=== PATIENT | male | born 1970 | race Caucasian/White ===

== ENCOUNTER → 2024-04-26 08:26 | Outpatient (REF) | payer BC, SELFPAY ==
[2024-04-26 09:32] LABS: Microalbumin, Random Urine <0.6 mg/dl (0.6-1.7)
[2024-04-26 09:36] LABS: ALT (SGPT) 28 U/L (0-50); AST (SGOT) 24 U/L (17-59); Albumin 4.6 g/dl (3.5-5.0); Alkaline Phosphatase 61 U/L (38-126); Blood Urea Nitrogen 11 mg/dl (9-20); Calcium 10.2 mg/dl (8.4-10.2); Carbon Dioxide 22 mmol/L (22-30); Chloride 106 mmol/L (98-107); Glucose 114 mg/dl (70-99); HDL Cholesterol 27 mg/dl; LDL Cholesterol, Calculated 40 mg/dl; Potassium 4.4 mmol/L (3.5-5.1); Sodium 141 mmol/L (135-145); Total Bilirubin 0.8 mg/dl (0.2-1.3); Total Cholesterol 94 mg/dl (50-199); Total Protein 6.8 g/dl (6.3-8.2); Triglyceride 135 mg/dl (10-149); Very Low Density Lipoprotein 27 mg/dl (0-30); eGFR > 60.00
== END ==
LOC: REG 08:26
PROVIDERS: ATTENDING PHYSICIAN Family Medicine
DX: E11.9 Type 2 diabetes mellitus without complications (principal)
CPT/HCPCS: 36415; 80053; 80061; 82043; 82570; 83036

== ENCOUNTER 2024-07-01 10:48 | Emergency (ER) | payer BC, SELFPAY ==
[2024-07-01 10:57] VITALS: BP 142/86
[2024-07-01 11:16] VITALS: BP 116/83
[2024-07-01 11:18] VITALS: BMI 29.3
[2024-07-01 11:36] LABS: % Basophils 0.8 % (0-2); % Eosinophils 4.3 % (0-6); % Immature Granulocytes 0.1 % (0-0.5); % Lymphocytes 19.6 % (20.5-51.1); % Neutrophils 69.2 % (42.2-75.2); Absolute Basophils 0.1 10^3/uL (0-0.2); Absolute Eosinophils 0.3 10^3/uL (0-0.7); Absolute Lymphocytes 1.5 10^3/uL (1.2-3.4); Absolute Monocytes 0.5 10^3/uL (0.1-0.6); Absolute Neutrophils 5.2 10^3/uL (1.4-6.5); Hematocrit 47.9 % (39.0-52.0); Hemoglobin 16.9 g/dL (13.0-18.0); Mean Corp Hgb Conc. 35.3 g/dL (33.0-37.0); Mean Corpuscular Hgb 29.1 pg (27.0-31.0); Mean Corpuscular Volume 82.4 fL (80.0-94.0); Mean Platelet Volume 9.5 fL (7.4-10.4); Nucleated Red Blood Cells % 0 % (-); Platelet Count 240 10^3/uL (130-400); Red Blood Cell Count 5.81 10^6/uL (4.70-6.10); Red Cell Dist. Width 13.2 % (11.5-14.5); White Blood Cell Count 7.5 10^3/uL (4.8-10.8)
--- NOTE | 2024-07-01 11:49 | ED.GENMED ---
History of Present Illness
General
Chief Complaint: Chest Pain
Source: patient
Exam Limitations: none
Time Seen by Provider: 07/01/24 11:08
Nursing documentation reviewed up to this point in time: agreed with
History of Present Illness
History of Present Illness:
Patient is a 53-year-old male past medical history of CAD hyperlipidemia UT SVT reflux presents today for evaluation. He reports on 8:30 a.m. this morning while at work he got some bad news and suddenly started to have difficulty breathing dry
mouth and felt heart beating fast. Triage note reports patient had pain but he reports this more as palpitations and racing sensation rather than pain. He believes he was having an anxiety attack because the bad news he received. This does not
feel similar to his chest pain when he had his UT despite triage note stating that this was similar presentation. He presents awake alert no acute distress symptoms lasted for couple hours but have currently resolved.
Past History
Past History
ED Past Medical History: Arrthythmia (SVT), CAD, GERD, IDDM and Psychiatric (Anxiety)
ED Past Surgical History: Cardiac (Stents) and Cholecystectomy
Social History
Tobacco: Former smoker
Alcohol: Occasional
Personal:
Living: with family
Employment: Employed
Family History
Family History: Other (Gallbladder disease); Negative Diabetes, Early CAD or CAD
Review of Systems
Review of Systems
Allergies reviewed?: Yes
All Other Systems: ROS reviewed and negative except as documented in HPI and ROS
Constitutional: Reports no symptoms; Denies fever, fatigue or chills
EENT: Reports no symptoms
Respiratory: Reports trouble breathing
Cardiac: Reports palpitations
ABD/GI: Reports no symptoms; Denies abdominal pain, nausea or vomiting
: Reports no symptoms
Musculoskeletal: Reports no symptoms
Skin: Reports no symptoms
Hematologic/Lymphatic: Reports no symptoms
Psychiatric: Reports no symptoms
Phy Exam
General Physical Exam
General Presentation: no apparent distress
General age: appears stated age
General Skin: warm and dry
General Habitus: normal
General Mental: alert
General Hydration: appears well hydrated
Cardiovascular Exam
Cardiovascular Exam: regular rate/rhythm, no murmur and normal peripheral pulses
Scores
Heart Score for Chest Pain Patients
STEMI patient?: Not applicable
Course
Orders/Labs/Results
Orders:
Orders
07/01/24 10:49
EKG [Electrocardiogram (*1)] Urgent
Reason for Study: Chest Pain
EKG- Treatment ONCE
07/01/24 11:27
CMP [Comprehensive Metabolic Panel] Urgent
Complete Blood Count/With Diff Urgent
Troponin I Urgent
07/01/24 14:18
Chest [CR Chest - 2 Views ] Urgent
Comment:
Reason For Exam: cp
07/01/24 14:20
Electrocardiogram (*1) Stat
Reason for Study: Other
Other Reason for Exam: chest pain
EKG- Treatment ONCE
07/01/24 14:45
Troponin I Urgent
Abnormal Lab Results
07/01/24
11:27
Lymphocytes % 19.6 L %
(20.5-51.1)
Carbon Dioxide 18 L mmol/L
(22-30)
Glucose 106 H mg/dl
(70-99)
Calcium 10.5 H mg/dl
(8.4-10.2)
Albumin 5.1 H g/dl
(3.5-5.0)
07/01/24 11:27
07/01/24 11:27
Vital Signs
Initial and Last Documented VS:
Initial Vital Signs
Temp Pulse Resp BP Pulse Ox
98 F 90 16 142/86 99
07/01/24 10:57 07/01/24 10:57 07/01/24 10:57 07/01/24 10:57 07/01/24 10:57
Last Documented Vital Signs
Temp Pulse Resp BP Pulse Ox
98 F 96 18 127/92 99
07/01/24 10:57 07/01/24 15:00 07/01/24 11:19 07/01/24 15:00 07/01/24 10:57
MDM/Problems Addressed
Differential Diagnosis Includes:
not limited to: anxiety, less likely acs
MDM/Problems Addressed:
Patient is document is a 49-year-old male previous UT presents for episode of shortness of breath dry mouth and heart racing around 830 this morning while getting bad news at work. He feels that this is anxiety and denies any actual pain. Symptoms
resolved over several hours that he is presently symptom-free. Because of cardiac history we will check 2 troponins
Patient has remained asymptomatic here in the ER first troponin negative will check second troponin and EKG and if negative plan to discharge home. He has remained asymptomatic and described symptom of feeling short of breath broke out in a
sweat,heart racing after getting stressful news at work. He describes this has ' having an anxiety attack.' He had no chest pain during this. This did not feel similar to his previous UT. likely anxiety however will still have a follow-up with
his cardiology group.
*Radiology
Radiology exam reviewed: radiology read reviewed
*Critical Care Note
Total Time (30-74mins, 75-104mins- exclusive of procedures): Not Applicable
ED Attending Note
-
Portions of this chart may have been created with voice recognition software.� Occasional wrong word or��sound alike� substitutions may have occurred due to the inherent limitations of voice recognition software.
Discharge Plan
Departure
Patient Disposition: Home (Routine Discharge)
Date of Disposition: 07/01/24
Time of Disposition: 15:52
Patient with high blood pressure during this ER visit?: Yes
Condition: Fair
Covid-19: Not Applicable
Discharge Problem:
Acute dyspnea, Anxiety
Instructions: Anxiety, Adult ED, Shortness of Breath, Adult ED, BLOOD PRESSURE
Prescriptions:
No Action
lisinopril 2.5 MG tablet
5 mg PO DAILY
insulin glargine [Lantus Solostar U-100 Insulin] 300 UNITS/3 ML insulin pen
18 units SC DAILY
atorvastatin 40 MG tablet
40 mg PO QPM
carvedilol 6.25 MG tablet
6.25 mg PO BID
aspirin 81 MG tablet,chewable
81 mg PO DAILY
metformin 1,000 MG tablet
1,000 mg PO BID@0800,1700 Qty: 60 0RF
diazepam [Valium] 5 mg tablet
5 mg PO TID PRN (Reason: spasm) Qty: 14 0RF
Referrals:
Ayana Dyson DO [Family Provider] -
Ifeoma Philippe DO [Active] -
Activity Restrictions/Additional Instructions:
Follow up with cardiology as discussed for further reevaluation.
return if any worsening of symptoms.
Interventions
Interventions:
*Risk Screen - Suicide Last Done: 07/01/24 10:58
*General Assessment Last Done: 07/01/24 11:18
*Neglect/Abuse Screening Last Done: 07/01/24 10:58
ED- Fall Risk Assessment Last Done: 07/01/24 11:18
*ED COVID-19 Vaccine History Last Done: 07/01/24 10:58
ED- Cardiac Assessment Last Done: 07/01/24 11:18
Discharge Date and Time
Print Language: ARMENIAN
[2024-07-01 11:58] LABS: ALT (SGPT) 30 U/L (0-50); AST (SGOT) 26 U/L (17-59); Albumin 5.1 g/dl (3.5-5.0); Alkaline Phosphatase 45 U/L (38-126); Blood Urea Nitrogen 12 mg/dl (9-20); Calcium 10.5 mg/dl (8.4-10.2); Carbon Dioxide 18 mmol/L (22-30); Chloride 106 mmol/L (98-107); Estimated Creatinine Clearance 125 ml/min; Glucose 106 mg/dl (70-99); Potassium 4.6 mmol/L (3.5-5.1); Sodium 140 mmol/L (135-145); Total Protein 7.5 g/dl (6.3-8.2); eGFR > 60.00
[2024-07-01 12:00] VITALS: BP 115/77
[2024-07-01 12:08] LABS: Troponin I < 0.012 ng/ml
[2024-07-01 13:00] VITALS: BP 121/88
[2024-07-01 14:00] VITALS: BP 110/77
[2024-07-01 15:00] VITALS: BP 127/92
[2024-07-01 15:39] LABS: Troponin I < 0.012 ng/ml
== END 2024-07-01 16:07 | disposition home or self-care (01) ==
LOC: EMR 10:48
PROVIDERS: Nurse Practitioner; EMERGENCY PHYSICIAN Emergency Medicine; FAMILY PHYSICIAN Family Medicine
DX: F41.9 Anxiety disorder, unspecified (principal); R06.00 Dyspnea, unspecified; I25.10 Atherosclerotic heart disease of native coronary artery without angina pectoris; I25.2 Old myocardial infarction; E11.9 Type 2 diabetes mellitus without complications; K21.9 Gastro-esophageal reflux disease without esophagitis; Z79.4 Long term (current) use of insulin; Z87.891 Personal history of nicotine dependence; Z95.5 Presence of coronary angioplasty implant and graft; Z90.49 Acquired absence of other specified parts of digestive tract
CPT/HCPCS: 99284; 71046; 80053; 84484; 85025; 93005